=== PATIENT | female | born 1940 | race Two or more races ===

== ENCOUNTER 2024-04-04 22:11 | Inpatient (IN) | payer OTHER ==
[~2024-04-04] VITALS: Ht 144.8 cm; Wt 50.0 kg
[2024-04-04 20:00] VITALS: PULSE 70
[2024-04-04] MEDS ORDERED: MORPHINE SULFATE INJ 2 MG/ml SYRG IV PRN (23:15)
[2024-04-04] MEDS ORDERED: DOCUSATE SOD 100 MG CAP PO PRN (23:15)
[2024-04-04] MEDS ORDERED: ACETAMINOPHEN 325 MG TAB PO PRN (23:15)
[2024-04-04] MEDS ORDERED: ONDANSETRON HCL 4 MG/2 ML VIAL IV PRN (23:15)
[2024-04-04] MEDS ORDERED: HYDROcodone-ACET 5/325MG TAB PO PRN (23:15)
[2024-04-04] MEDS ORDERED: NITROGLYCERIN 0.4 MG SL TAB SL PRN (23:15)
[2024-04-04] MEDS ORDERED: hydrALAZINE HCL 20 MG/ML VL IV PRN (23:15)
[2024-04-04 23:22] VITALS: BP 143/74; PULSE 86; RESP 20; TEMP 97.9; O2SAT 95
[2024-04-04] MEDS ORDERED: LEVO50TA7 PO (23:27)
[2024-04-04] MEDS ORDERED: LISI20TA56 PO (23:27)
[2024-04-04] MEDS ORDERED: METO-289 PO (23:27)
[2024-04-04] MEDS ORDERED: AMLO1TAB22 PO (23:27)
[2024-04-04] MEDS ORDERED: ASPI81CH59 PO (23:28)
[2024-04-05] VITALS (8 sets, daily range): BP systolic 97–159; BP diastolic 58–92; PULSE 67–87; RESP 14–19; TEMP 97.8–98.6; O2SAT 92–100
[2024-04-05 05:37] LABS: Basophils # (auto) 0 10 ^3/uL (0-0.2); Basophils % (auto) 0.8 % (0.0-2.0); Eosinophils # (auto) 0.1 10 ^3/uL (0-0.8); Eosinophils % (auto) 1.5 % (0.0-7.0); Hematocrit 38.3 % (36.0-46.0); Hemoglobin 13.2 g/dL (12.2-16.2); Lymphocytes % (auto) 24.3 % (10.0-50.0); Mean Corpuscular Hgb Conc. 34.5 g/dL (32.0-36.0); Mean Corpuscular Volume 92.8 fL (80.0-100.0); Monocytes # (auto) 0.4 10 ^3/uL (0-1.3); Monocytes % (auto) 8.5 % (0.0-12.0); Neutrophils # (auto) 2.8 10 ^3/uL (1.6-8.6); Neutrophils % (auto) 64.9 % (37.0-80.0); Nucleated Red Blood Cells % 0.1 %; Platelet Count (auto) 133 10^3/uL (140-450); Red Blood Cells 4.13 10^6/uL (4.0-5.20); Red Cell Distribution Width 12.8 % (11.8-14.3); White Blood Cell 4.3 10^3/uL (4.4-10.8)
[2024-04-05 05:59] LABS: Chloride 108 mmol/L (98-107); Potassium 3.3 mmol/L (3.5-5.1); Sodium 143 mmol/L (136-145)
[2024-04-05 06:00] LABS: Anion Gap 8 (5-15); Calcium 9.4 mg/dL (8.7-10.4); Carbon Dioxide 27 mmol/L (20-31)
[2024-04-05 06:05] LABS: BUN/Creatinine Ratio 15.1 (10.0-20.0); Blood Urea Nitrogen 11 mg/dL (9-23); Glucose 96 mg/dL (74-106); Triglycerides 52 mg/dL (< 150)
[2024-04-05 06:06] LABS: LDL Cholesterol 100 mg/dL (< 100)
[2024-04-05 06:07] LABS: Cholesterol 169 mg/dL (< 200); HDL Cholesterol 62 mg/dL (40-59)
[2024-04-05] MEDS: ASPirin 81 mg TAB PO SCH (11:27)
[2024-04-05] MEDS: ENOXAPARIN SOD 40 MG/0.4 ML SYRINGE SC SCH (11:28)
[2024-04-05] MEDS: POTASSIUM CHL 20 Meq TABLET PO SCH (13:02)
[2024-04-05] MEDS: LEVOTHYROXINE SODIUM 50 MCG TAB PO SCH (13:02)
[2024-04-05] MEDS: LISINOPRIL 20 MG TAB PO SCH (13:03)
[2024-04-05] MEDS: METOPROLOL SUCCINATE XL 50 MG TAB PO SCH (13:03)
[2024-04-05] MEDS: amLODIPine BESYLATE 5 MG TAB PO SCH (13:04)
[2024-04-05] MEDS: ATORVASTATIN 20 MG TAB ONE (20:48)
[2024-04-05] MEDS: ATORVASTATIN 20 MG TAB PO SCH (20:51)
[2024-04-06] VITALS (9 sets, daily range): BP systolic 121–148; BP diastolic 58–80; PULSE 60–99; RESP 14–18; TEMP 97.6–98.8; O2SAT 93–98
[2024-04-06 07:19] LABS: Basophils # (auto) 0 10 ^3/uL (0-0.2); Basophils % (auto) 0.9 % (0.0-2.0); Eosinophils # (auto) 0.1 10 ^3/uL (0-0.8); Eosinophils % (auto) 2.1 % (0.0-7.0); Hematocrit 38.1 % (36.0-46.0); Hemoglobin 13.2 g/dL (12.2-16.2); Lymphocytes # (auto) 1.3 10 ^3/uL (0.4-5.4); Lymphocytes % (auto) 27.9 % (10.0-50.0); Mean Corpuscular Hemoglobin 33.2 pg (28.0-32.0); Mean Corpuscular Hgb Conc. 34.6 g/dL (32.0-36.0); Mean Corpuscular Volume 95.7 fL (80.0-100.0); Monocytes # (auto) 0.4 10 ^3/uL (0-1.3); Monocytes % (auto) 8.7 % (0.0-12.0); Neutrophils # (auto) 2.8 10 ^3/uL (1.6-8.6); Neutrophils % (auto) 60.4 % (37.0-80.0); Nucleated Red Blood Cells % 0.1 %; Platelet Count (auto) 150 10^3/uL (140-450); Red Blood Cells 3.98 10^6/uL (4.0-5.20); Red Cell Distribution Width 12.8 % (11.8-14.3); White Blood Cell 4.7 10^3/uL (4.4-10.8)
[2024-04-06 07:40] LABS: Alanine Aminotransferase 24 U/L (7-40); Albumin 4.2 g/dL (3.2-4.8); Alkaline Phosphatase 84 U/L (46-116); Anion Gap 8 (5-15); Aspartate Aminotransferase 37 U/L (13-40); BUN/Creatinine Ratio 17.8 (10.0-20.0); Bilirubin, Total 0.8 mg/dL (0.2-1.0); Blood Urea Nitrogen 16 mg/dL (9-23); Calcium 9.8 mg/dL (8.7-10.4); Carbon Dioxide 25 mmol/L (20-31); Chloride 107 mmol/L (98-107); Glucose 91 mg/dL (74-106); Potassium 3.8 mmol/L (3.5-5.1); Sodium 140 mmol/L (136-145)
[2024-04-07 01:00] VITALS: BP 127/61; PULSE 65; RESP 18; TEMP 97.9; O2SAT 96
[2024-04-07 05:00] VITALS: BP 153/69; PULSE 70; RESP 18; TEMP 97.8; O2SAT 96
[2024-04-07 08:00] VITALS: PULSE 105; PULSE 63; RESP 18; O2SAT 98
[2024-04-07 08:09] LABS: Basophils # (auto) 0 10 ^3/uL (0-0.2); Basophils % (auto) 0.8 % (0.0-2.0); Eosinophils # (auto) 0.1 10 ^3/uL (0-0.8); Eosinophils % (auto) 1.3 % (0.0-7.0); Hematocrit 40.3 % (36.0-46.0); Hemoglobin 13.8 g/dL (12.2-16.2); Lymphocytes # (auto) 1.1 10 ^3/uL (0.4-5.4); Lymphocytes % (auto) 24.1 % (10.0-50.0); Mean Corpuscular Hemoglobin 32.5 pg (28.0-32.0); Mean Corpuscular Hgb Conc. 34.3 g/dL (32.0-36.0); Mean Corpuscular Volume 94.6 fL (80.0-100.0); Monocytes # (auto) 0.4 10 ^3/uL (0-1.3); Monocytes % (auto) 7.9 % (0.0-12.0); Neutrophils % (auto) 65.9 % (37.0-80.0); Platelet Count (auto) 156 10^3/uL (140-450); Red Blood Cells 4.26 10^6/uL (4.0-5.20); Red Cell Distribution Width 12.5 % (11.8-14.3); White Blood Cell 4.6 10^3/uL (4.4-10.8)
[2024-04-07 08:26] LABS: INR 1.1 (0.9-1.15); Prothrombin Time 11.6 sec (9.3-11.8)
[2024-04-07 08:35] LABS: Alanine Aminotransferase 24 U/L (7-40); Albumin 4.4 g/dL (3.2-4.8); Alkaline Phosphatase 86 U/L (46-116); Anion Gap 8 (5-15); Aspartate Aminotransferase 41 U/L (13-40); Bilirubin, Total 0.6 mg/dL (0.2-1.0); Blood Urea Nitrogen 18 mg/dL (9-23); Calcium 10.2 mg/dL (8.7-10.4); Carbon Dioxide 26 mmol/L (20-31); Chloride 108 mmol/L (98-107); Glucose 109 mg/dL (74-106); Potassium 4.1 mmol/L (3.5-5.1); Sodium 142 mmol/L (136-145)
[2024-04-07 08:36] LABS: Total Protein 7.2 g/dL (5.7-8.2)
[2024-04-07] MEDS: ENOXAPARIN SOD 30 MG/0.3 ML SYRINGE SC SCH (09:05)
[2024-04-07 09:10] VITALS: BP 168/82; PULSE 90; RESP 20; TEMP 98.6; O2SAT 95
[2024-04-07] MEDS: ADENOSINE 42 MG in GIVE UN-DILUTED 0 ML IV STA (11:00)
[2024-04-07 13:00] VITALS: BP 150/76; PULSE 87; RESP 22; TEMP 97.5; O2SAT 95
[2024-04-07] MEDS ORDERED: ATOR20TA50 PO (16:01)
[2024-04-07] MEDS ORDERED: PANT40TA57 PO (16:03)
[2024-04-07 16:37] VITALS: BP_SYST 142; BP_SYST 152; BP_DIAS 68; BP_DIAS 76; PULSE 68; PULSE 90; RESP 18; TEMP 98.4; O2SAT 96
== END 2024-04-07 17:08 | disposition home or self-care (01) | DRG 206 ==
LOC: TELE-WESTW 22:45
PROVIDERS: ADMIT Hospitalist; ATTEND Nurse Practitioner Family
DX: M94.0 Chondrocostal junction syndrome [Tietze] (principal); I25.10 Atherosclerotic heart disease of native coronary artery without angina pectoris; E03.9 Hypothyroidism, unspecified; E78.5 Hyperlipidemia, unspecified; E87.6 Hypokalemia; M81.0 Age-related osteoporosis without current pathological fracture; I12.9 Hypertensive chronic kidney disease with stage 1 through stage 4 chronic kidney disease, or unspecified chronic kidney disease; N18.9 Chronic kidney disease, unspecified; Z80.41 Family history of malignant neoplasm of ovary; Z86.79 Personal history of other diseases of the circulatory system; Z82.49 Family history of ischemic heart disease and other diseases of the circulatory system; Z90.710 Acquired absence of both cervix and uterus; Z79.82 Long term (current) use of aspirin; Z79.899 Other long term (current) drug therapy
CPT/HCPCS: 36415; 78452; 80048; 80053; 80061; 83036; 83735; 83880; 84443; 85025; 85610; 85730; 93017; 93306; 97116; 97163; 97530; G0378; J0153